=== PATIENT | male | born 1975 | race Hispanic/Latino ===

== ENCOUNTER 2017-07-08 14:32 | Emergency (ER) | payer MEDICARE ==
[2017-07-08] MEDS ORDERED: KEPPRA 1,000 MG/NS 0.75% 100ML 1,000 MG/100 ML BAG IV ONE ×3 (15:36→16:00)
[2017-07-08] MEDS ORDERED: BENADRYL IV ONE (15:36)
[2017-07-08] MEDS ORDERED: KEPPRA 1,000 MG in NACL 0.9% 100 ML IV ONE (15:39)
--- NOTE | 2017-07-08 15:41 | Emergency Department Report ---
ED General Adult HPI - General Chief complaint: Fall Stated complaint: REACTION TO MEDICATION Time Seen by Provider: 07/08/17 15:34 Source: patient, EMS Mode of arrival: Stretcher Limitations: No Limitations - History of Present Illness Initial comments: Patient is 41 years old male with history of schizophrenia and seizure. Patient presented to the ER from ankle or psychiatric facility for evaluation of jerking movements that it started today. Patient stated that he had a history of seizure he is on Keppra 750 twice a day but he didn't have his medication for the last 2 days and he feel like that his seizures coming on. Patient denied any head injury, fever, loss of consciousness, weakness numbness or tingling sensation. - Related Data Allergies Allergy/AdvReac Type Severity Reaction Status Date / Time No Known Allergies Allergy Unverified 07/08/17 15:32 ED Review of Systems ROS: Stated complaint: REACTION TO MEDICATION Other details as noted in HPI Comment: All other systems reviewed and negative Constitutional: denies: chills, fever Respiratory: denies: cough, orthopnea, shortness of breath, SOB with exertion, SOB at rest Cardiovascular: denies: chest pain, palpitations, dyspnea on exertion Gastrointestinal: denies: abdominal pain, nausea, vomiting, diarrhea, constipation, hematemesis, hematochezia Neurological: denies: headache, weakness ED Past Medical Hx - Past Medical History Previous Medical History?: Yes Hx Hypertension: Yes Hx Seizures: Yes Hx Psychiatric Treatment: Yes (schizophrenia) Additional medical history: sciatica - Surgical History Past Surgical History?: Yes Hx Cholecystectomy: Yes Additional Surgical History: splenectomy. metal plate and screws R ankle ? 2018. disc replacements in lower back x2 - Social History Smoking Status: Never Smoker Substance Use Type: None ED Physical Exam - General Limitations: No Limitations General appearance: alert, in no apparent distress, anxious - Head Head exam: Present: atraumatic, normocephalic, normal inspection - Eye Eye exam: Present: normal appearance, PERRL - ENT ENT exam: Present: normal exam, normal orophraynx, mucous membranes moist - Neck Neck exam: Present: normal inspection, full ROM. Absent: tenderness, meningismus, lymphadenopathy, thyromegaly - Respiratory Respiratory exam: Present: normal lung sounds bilaterally. Absent: respiratory distress, wheezes, rales, rhonchi, stridor, chest wall tenderness, accessory muscle use, decreased breath sounds, prolonged expiratory - Cardiovascular Cardiovascular Exam: Present: regular rate, normal rhythm, normal heart sounds - GI/Abdominal GI/Abdominal exam: Present: soft, normal bowel sounds. Absent: distended, tenderness, guarding, rebound, rigid, organomegaly, mass, bruit, pulsatile mass , hernia - Extremities Exam Extremities exam: Present: normal inspection, full ROM, normal capillary refill - Back Exam Back exam: Present: normal inspection, full ROM. Absent: tenderness, CVA tenderness (R), CVA tenderness (L), muscle spasm, paraspinal tenderness, vertebral tenderness, rash noted - Neurological Exam Neurological exam: Present: alert, oriented X3, CN II-XII intact, normal gait - Skin Skin exam: Present: warm, intact, normal color ED Course Vital Signs 07/08/17 07/08/17 07/08/17 15:00 15:42 15:49 Temperature 98.7 F Pulse Rate 85 79 Respiratory 14 20 18 Rate Blood Pressure 131/81 Blood Pressure [Left] O2 Sat by Pulse 97 98 Oximetry 07/08/17 07/08/17 16:19 16:58 Temperature Pulse Rate 75 68 Respiratory 16 14 Rate Blood Pressure Blood Pressure 120/80 116/75 [Left] O2 Sat by Pulse 96 96 Oximetry - Reevaluation(s) Reevaluation #1: 07/08/17 18:43 Patient observed in the ER, no seizure activity observed. Patient stated that he is feeling much better. We will refill his Keppra and advised him to follow- up with his neurologist. ED Medical Decision Making - Lab Data Result diagrams: 07/08/17 15:46 07/08/17 15:46 Critical care attestation.: If time is entered above; I have spent that time in minutes in the direct care of this critically ill patient, excluding procedure time. ED Disposition Clinical Impression: Seizure Disposition: DC/TX-65 PSY HOSP/PSY UNIT Is pt being admited?: No Condition: Stable Instructions: Recurrent Seizures Adult (ED) Referrals: PRIMARY CARE, [Primary Care Provider] - 3-5 Days
[2017-07-08 15:55] LABS: Basophils # (Auto) 0.1 K/mm3 (0.0-0.1); Basophils % (Auto) 1.1 % (0.0-1.8); Eosinophils # (Auto) 0.3 K/mm3 (0.0-0.4); Eosinophils % (Auto) 4.4 % (0.0-4.3); Hematocrit 38.6 % (35.5-45.6); Lymphocytes # (Auto) 2.9 K/mm3 (1.2-5.4); Mean Corpuscular HGB Conc 34 % (32-34); Mean Corpuscular Hemoglobin 30 pg (28-32); Mean Corpuscular Volume 91 fl (84-94); Monocytes # (Auto) 0.7 K/mm3 (0.0-0.8); Monocytes % (Auto) 9.9 % (0.0-7.3); Platelet Count 361 K/mm3 (140-440); Red Blood Count 4.27 M/mm3 (3.65-5.03); Red Cell Distribution Width 14.1 % (13.2-15.2)
[2017-07-08 16:13] LABS: BUN/Creatinine Ratio 21; Blood Urea Nitrogen 15 mg/dL (9-20); Calcium 9.2 mg/dL (8.4-10.2); Hemolysis Index 3
[2017-07-08 18:49] VITALS: BP 111/70
== END 2017-07-08 18:54 ==
LOC: ED 14:32
DX: R56.9 Unspecified convulsions (principal); I10 Essential (primary) hypertension; F20.9 Schizophrenia, unspecified; Z90.49 Acquired absence of other specified parts of digestive tract
CPT/HCPCS: 36415; 80048; 82550; 85025; 96365; 96375; 99284; J1200; J1953

== ENCOUNTER 2018-12-26 09:58 | Emergency (ER) | payer MEDICARE ==
[2018-12-26] MEDS ORDERED: ATIVAN IV STA (10:37)
[2018-12-26] MEDS ORDERED: KEPPRA 1,000 MG/NS 0.75% 100ML 1,000 MG/100 ML BAG IV STA (10:37)
--- NOTE | 2018-12-26 11:45 | Emergency Department Report ---
ED Seizure HPI - General Chief Complaint: Headache Stated Complaint: SEIZURE Time Seen by Provider: 12/26/18 10:22 Source: patient, EMS Mode of arrival: Stretcher Limitations: No Limitations - History of Present Illness Initial Comments: 43-year-old male with reported history of [facility] to his alcohol abuse. He reports having had a generalized seizure prior to arrival causing him to bite his tongue and he may have had some urinary incontinence. States he's been compliant with his current medication regimen but can't recall the current medications she is utilizing. He denies any breakthrough alcohol use or illicit drug use. Has a dull headache no neck pain reports no fever, chills, sweats no chest pain or palpitations no nausea vomiting no neck pain. There isalmost a reports no changes in vision at this present time no tinnitus either. 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 MD Complaint: seizure -: Sudden (just prior to arrival once 2 hours) - Related Data Previous Rx's Medication Instructions Recorded Last Taken Type levETIRAcetam [Keppra TAB] 750 mg PO BID #60 tablet 07/08/17 Unknown Rx Allergies Allergy/AdvReac Type Severity Reaction Status Date / Time No Known Allergies Allergy Unverified 07/08/17 15:32 ED Review of Systems ROS: Stated complaint: SEIZURE Other details as noted in HPI Comment: All other systems reviewed and negative ED Past Medical Hx - Past Medical History Hx Hypertension: Yes Hx Seizures: Yes Hx Psychiatric Treatment: Yes (schizophrenia) Additional medical history: sciatica - Surgical History Hx Cholecystectomy: Yes Additional Surgical History: splenectomy. metal plate and screws R ankle ?2018. disc replacements in lower back x2 - Social History Smoking Status: Current Every Day Smoker Substance Use Type: Methamphetamines - Medications Home Medications: Home Medications Medication Instructions Recorded Confirmed Last Taken Type levETIRAcetam [Keppra TAB] 750 mg PO BID #60 tablet 07/08/17 Unknown Rx ED Physical Exam - General Limitations: No Limitations General appearance: alert, in no apparent distress - Head Head exam: Present: atraumatic, normocephalic - Eye Eye exam: Present: normal appearance, PERRL Pupils: Present: normal accommodation - ENT ENT exam: Present: mucous membranes moist - Neck Neck exam: Present: normal inspection - Respiratory Respiratory exam: Present: normal lung sounds bilaterally. Absent: respiratory distress - Cardiovascular Cardiovascular Exam: Present: regular rate, normal rhythm. Absent: systolic murmur, diastolic murmur, rubs, gallop - GI/Abdominal GI/Abdominal exam: Present: soft, normal bowel sounds - Rectal Rectal exam: Present: deferred - Extremities Exam Extremities exam: Present: normal inspection - Back Exam Back exam: Present: normal inspection - Neurological Exam Neurological exam: Present: alert, oriented X3 - Psychiatric Psychiatric exam: Present: normal affect, normal mood - Skin Skin exam: Present: warm, dry, intact, normal color. Absent: rash ED Course Vital Signs 12/26/18 10:22 Temperature 98.7 F Pulse Rate 111 H Respiratory 20 Rate Blood Pressure 160/84 Blood Pressure 160/84 [Left] O2 Sat by Pulse 96 Oximetry ED Medical Decision Making - Medical Decision Making [id number] male with past history of seizures currently in the hospital for detoxification presents emergency department after having a reported possible seizure while outside smoking. He was transported to the emergency department via EMS and he was evaluated and watched here for 4 hours with usual activity he was loaded with 1 g of Keppra and also given Ativan. His laboratory data was was normal A CT scan of head. Alert and oriented 3 ambulatory under his own power with no distress is able to speak in full sentences and he understands the findings and the plan of care which he agrees. Also spoke with his Caregiver at length of following up with the ankle facility physician for possible reevaluation and of his medications for possible adjustment Case was discussed with attending Dr. Real who agrees with the plan of care and is aware of the discharge Critical care attestation.: If time is entered above; I have spent that time in minutes in the direct care of this critically ill patient, excluding procedure time. ED Disposition Clinical Impression: Seizure disorder Disposition: DC-01 TO HOME OR SELFCARE Is pt being admited?: No Does the pt Need Aspirin: No Condition: Stable Instructions: Recurrent Seizures Adult (ED)
[2018-12-26 12:07] LABS: Basophils # (Auto) 0.1 K/mm3 (0.0-0.1); Basophils % (Auto) 0.8 % (0.0-1.8); Eosinophils # (Auto) 0.2 K/mm3 (0.0-0.4); Eosinophils % (Auto) 1.3 % (0.0-4.3); Hematocrit 42.8 % (35.5-45.6); Hemoglobin 14.3 gm/dl (11.8-15.2); Lymphocytes # (Auto) 2.7 K/mm3 (1.2-5.4); Lymphocytes % (Auto) 22.2 % (13.4-35.0); Mean Corpuscular HGB Conc 33 % (32-34); Mean Corpuscular Volume 96 fl (84-94); Monocytes # (Auto) 1.1 K/mm3 (0.0-0.8); Monocytes % (Auto) 8.9 % (0.0-7.3); Platelet Count 375 K/mm3 (140-440); Red Blood Count 4.48 M/mm3 (3.65-5.03)
[2018-12-26 12:22] LABS: Alanine Aminotransferase 86 units/L (7-56); Albumin 4.5 g/dL (3.9-5); BUN/Creatinine Ratio 15; Blood Urea Nitrogen 12 mg/dL (9-20); Calcium 9.3 mg/dL (8.4-10.2); Hemolysis Index 8
--- NOTE | 2018-12-26 13:12 | Cat Scan Report ---
CT head/brain wo con INDICATION: headache. TECHNIQUE: Routine CT head without contrast. All CT scans at this location are performed using CT dos e reduction for ALARA by means of automated exposure control. COMPARISON: None. FINDINGS: BRAIN / INTRACRANIAL CONTENTS: No acute hemorrhage, mass effect, midline shift, or hydrocephalus. No appreciable acute large territorial or lacunar infarct. No chronic infarct or focal atrophy. Normal b rain volume and ventricular/sulcal size for age. ORBITS: No significant abnormality of visualized orbits. SINUSES / MASTOIDS: No significant abnormality of visualized sinuses and mastoid air cells. ADDITIONAL FINDINGS: None. IMPRESSION: 1. No acute intracranial abnormality. Signer Name: Aureliano Sawyer MD Signed: 12/26/2018 1:07 PM Workstation Name: [email or web address]
[2018-12-26 13:57] VITALS: BP 136/89
[2018-12-26] MEDS ORDERED: PERCOCET 5/325 PO ONE (13:57)
[2018-12-26] MEDS ORDERED: PERCOCET 5/325 ONE (14:00)
[2018-12-26 14:11] LABS: Amphetamine Screen,Urine PRESUMPTIVE NEGATIVE; Benzodiazepines Screen,Urine PRESUMPTIVE NEGATIVE; Cannabinoid Screen,Urine PRESUMPTIVE NEGATIVE; Cocaine Screen,Urine PRESUMPTIVE NEGATIVE; Methadone Screen,Urine PRESUMPTIVE NEGATIVE; Opiate Screen,Urine PRESUMPTIVE NEGATIVE
== END 2018-12-26 16:23 | disposition home or self-care (01) ==
LOC: ED 09:58
DX: G40.909 Epilepsy, unspecified, not intractable, without status epilepticus (principal); I10 Essential (primary) hypertension; F20.9 Schizophrenia, unspecified; F17.200 Nicotine dependence, unspecified, uncomplicated; F15.10 Other stimulant abuse, uncomplicated; Z90.49 Acquired absence of other specified parts of digestive tract; Z79.899 Other long term (current) drug therapy; Z98.890 Other specified postprocedural states
CPT/HCPCS: 36415; 70450; 80053; 80307; 85025; 96365; 96375; 99284; J1953; J2060; 80320; G0480; Q9967